=== PATIENT | male | born 1960 | race Caucasian/White ===

== ENCOUNTER 2021-09-27 04:27 | Emergency (ER) | payer SELFPAY ==
[2021-09-27 04:34] VITALS: BP 131/81; PULSE 82; TEMP 98.8; BMI 27.4
[2021-09-27] MEDS ORDERED: FAMOTIDINE 20 MG/50 ML IVPB 20 MG/50 ML MG IVPB ONE ×2 (04:45→05:27)
[2021-09-27] MEDS ORDERED: ONDANSETRON 4 MG/2 ML VIAL IVPUSH ONE (04:45)
[2021-09-27] MEDS ORDERED: SODIUM CHLORIDE 0.9% 500 ML INFUS.BAG IV ONE (04:45)
[2021-09-27 05:34] LABS: CHLORIDE 106 mmol/L (98-107); SODIUM 141 mmol/L (136-145)
[2021-09-27 05:37] LABS: ALBUMIN 3.7 g/dl (3.4-5.0); ANION GAP 8 MMOL/L (8-16); BASO % 0.8 % (0-2.0); BLOOD UREA NITROGEN 3.2 mg/dL (7-18); CO2 27 mmol/L (21-32); EOS % 1.2 % (0-4.5); GLUCOSE,RANDOM 158 mg/dL (74-106); HEMOGLOBIN 14.3 GM/dL (11.7-16.9); LIPASE 247 U/L (73-393); LYMPH % 10.6 % (8-40); MCH 34.3 pg (25.7-33.7); MCHC 34.9 g/dl (32.0-35.9); MEAN CELL VOLUME 98.1 fl (80-96); MEAN PLT VOLUME 7.6 fl (7.5-11.1); MONO % 8.3 % (3.8-10.2); NEUT % 79.1 % (42.8-82.8); PLATELET COUNT 248 10^3/uL (134-434); RBC 4.18 M/mm3 (4.00-5.60); RDW 12.7 % (11.9-15.9)
[2021-09-27 05:40] LABS: CREATININE 0.6 mg/dL (0.55-1.3); SGOT/AST 142 U/L (15-37); SGPT/ALT 83 U/L (13-61)
[2021-09-27 05:42] LABS: BILIRUBIN,TOTAL 1.1 mg/dL (0.2-1); TOT PROT 8.8 g/dl (6.4-8.2)
[2021-09-27 05:43] LABS: ALK PHOS 87 U/L (45-117)
[2021-09-27] MEDS ORDERED: ONDANSETRON 4 MG/2 ML VIAL ONE (05:44)
[2021-09-27] MEDS ORDERED: MAG HYDROX/AL HYDROX/SIMETH -MYLANTA- ORAL SUSPENSION PO ONE (06:16)
[2021-09-27] MEDS ORDERED: MAGNESIUM HYDROX 2400MG/30ML ORAL SUSPENSION 30 ML CUP ONE (06:19)
== END 2021-09-27 06:51 | disposition home or self-care (01) ==
LOC: JER 04:27
PROC: 3E033GC Introduction of Other Therapeutic Substance into Peripheral Vein, Percutaneous Approach (ICD-10-PCS; principal; 2021-09-27)
DX: R10.13 Epigastric pain (principal); R11.10 Vomiting, unspecified
CPT/HCPCS: 36415; 80053; 83690; 83735; 84484; 85025; 93005; 93010; 99284-25

== ENCOUNTER 2024-04-13 22:09 | Inpatient (IN) | payer SELFPAY ==
[2024-04-13 22:57] LABS: BASO % 1.5 % (0-2.0); EOS % 2.7 % (0-4.5); HEMATOCRIT 39.9 % (35.4-49); MCH 35.5 pg (25.7-33.7); MCHC 35.1 g/dl (32.0-35.9); MEAN PLT VOLUME 9.3 fl (7.5-11.1); MONO % 14.4 % (3.8-10.2); NEUT % 50.4 % (42.8-82.8); PLATELET COUNT 117 10^3/uL (134-434); RBC 3.95 M/mm3 (4.00-5.60); WHITE BLOOD COUNT 4.3 K/mm3 (4.0-10.0)
[2024-04-13 23:04] LABS: INR 1.54 (0.83-1.09); PROTHROMBIN TIME (PATIENT) 17.2 SEC (9.7-13.0)
[2024-04-13 23:06] LABS: ACTIVATED PTT 42.6 SECONDS (25.2-36.5)
[2024-04-13] MEDS: SODIUM CHLORIDE 1,000 ML IV SCH (23:08)
[2024-04-13 23:10] LABS: POTASSIUM 3.2 mmol/L (3.5-5.1)
[2024-04-13 23:11] LABS: CALCIUM 8.2 mg/dL (8.5-10.1)
[2024-04-13 23:12] LABS: ALBUMIN 3.2 g/dl (3.4-5.0)
[2024-04-13 23:14] LABS: BLOOD UREA NITROGEN 4.9 mg/dL (7-18)
[2024-04-13 23:16] LABS: CREATININE 0.6 mg/dL (0.55-1.3)
[2024-04-13 23:17] LABS: TOT PROT 8.7 g/dl (6.4-8.2)
[2024-04-13 23:19] LABS: BILIRUBIN,TOTAL 3.2 mg/dL (0.2-1)
[2024-04-13 23:41] LABS: MAGNESIUM 1.6 mg/dL (1.8-2.4)
[2024-04-14] MEDS ORDERED: POTASSIUM CHLORIDE ORAL LIQUID 20 MEQ/15 ML ONE (00:20)
[2024-04-14] MEDS ORDERED: MAGNESIUM SULFATE IN WATER 2 GM/50 ML IVPB IVPB ONE (00:20)
[2024-04-14] MEDS: MAGNESIUM SULF 50% (8.12 MEQ/2 ML-1 GM VIAL) IVPB ONE (00:24)
[2024-04-14] MEDS: POTASSIUM CHLORIDE ORAL LIQUID 20 MEQ/15 ML PO ONE (00:24)
[2024-04-14] MEDS ORDERED: chlordiazePOXIDE HCL 25 MG CAPSULE PO PRN (02:51)
[2024-04-14] MEDS: FOLIC ACID INJECTION - 1 MG, THIAMINE HCL 100 MG, MULTIVIT INJECTION ADULT 10 ML in SOD... IVPB ONE (06:13)
[2024-04-14 07:12] LABS: POTASSIUM 3.7 mmol/L (3.5-5.1)
[2024-04-14 07:15] LABS: ALBUMIN 2.7 g/dl (3.4-5.0)
[2024-04-14] MEDS: chlordiazePOXIDE HCL 10 MG CAPSULE PO STA (07:15)
[2024-04-14 07:18] LABS: CREATININE 0.6 mg/dL (0.55-1.3)
[2024-04-14 07:19] LABS: PHOSPHOROUS 3.2 mg/dL (2.5-4.9)
[2024-04-14 07:20] LABS: TOT PROT 7.4 g/dl (6.4-8.2)
[2024-04-14 07:25] LABS: HEMATOCRIT 35.6 % (35.4-49); HEMOGLOBIN 12.4 GM/dL (11.7-16.9); MCH 35.9 pg (25.7-33.7); MCHC 34.9 g/dl (32.0-35.9); MEAN CELL VOLUME 102.8 fl (80-96); MEAN PLT VOLUME 9.6 fl (7.5-11.1); PLATELET COUNT 95 10^3/uL (134-434); RBC 3.46 M/mm3 (4.00-5.60); RDW 15.1 % (11.9-15.9); WHITE BLOOD COUNT 3.9 K/mm3 (4.0-10.0)
[2024-04-14 08:31] LABS: PH,URINE 6.5 (5.0-8.0); URINE APPEARANCE CLEAR; URINE BILIRUBIN NEGATIVE (NEGATIVE); URINE COLOR DK YELLOW; URINE GLUCOSE (UA) NEGATIVE (NEGATIVE); URINE KETONE TRACE (NEGATIVE); URINE LEUK ESTERASE NEGATIVE (NEGATIVE); URINE NITRITE NEGATIVE (NEGATIVE); URINE PROTEIN NEGATIVE (NEGATIVE)
[2024-04-14 09:13] LABS: METHADONE, UR NEGATIVE (NEGATIVE); PHENCYCLIDINE,URINE NEGATIVE (NEGATIVE); URINE AMPHETAMINES NEGATIVE (NEGATIVE); URINE BENZODIAZEPINES NEGATIVE (NEGATIVE)
[2024-04-14 09:14] LABS: OPIATES, URI NEGATIVE (NEGATIVE); URINE BARBITURATES NEGATIVE (NEGATIVE)
[2024-04-14 09:20] LABS: COCAINE, UR NEGATIVE (NEGATIVE)
[2024-04-14] MEDS: PANTOPRAZOLE SODIUM 40 MG VIAL IVPUSH SCH (09:23)
[2024-04-14] MEDS: MULTIVITAMINS (DAILY MVI) TABLET (FP) PO SCH (09:23)
[2024-04-14] MEDS: FOLIC ACID 1 MG TABLET (FP) PO SCH (09:23)
[2024-04-14] MEDS: THIAMINE HCL 200 MG/2 ML VIAL IVPB SCH (09:24)
[2024-04-14] MEDS: LACTATED RINGERS SOLUTION 1,000 ML/1,000 ML INFUS.BAG IV ONE (09:28)
[2024-04-14] MEDS ORDERED: amLODIPine BESYLATE 10 MG TABLET (FP) PO SCH (10:00)
[2024-04-14] MEDS: LORazepam 1 MG TABLET PO SCH (11:26)
[2024-04-14] MEDS ORDERED: LORazepam 0.5 MG TABLET PO PRN (15:51)
[2024-04-14] MEDS: LORazepam 1 MG TABLET PO PRN (15:53)
[2024-04-14] MEDS: ATORVASTATIN CA 80 MG TABLET (FP) PO SCH (21:00)
[2024-04-15] MEDS ORDERED: DEXMEDETOMIDINE PREMIX 400 MCG/100 ML BAG IVPB ONE (04:36)
[2024-04-15] MEDS: PHENobarbital SODIUM 65 MG/1 ML VIAL IVPUSH ONE (05:12)
[2024-04-15] MEDS: DEXMEDETOMIDINE PREMIX 400 MCG/100 ML BAG IVPB SCH (05:14)
[2024-04-15] MEDS ORDERED: PHENobarbital SODIUM 65 MG/1 ML VIAL IVPUSH PRN (05:15)
[2024-04-15 06:45] LABS: BASO % 1.1 % (0-2.0); EOS % 0.5 % (0-4.5); HEMATOCRIT 38.3 % (35.4-49); LYMPH % 11.6 % (8-40); MCH 35.1 pg (25.7-33.7); MCHC 33.9 g/dl (32.0-35.9); MEAN CELL VOLUME 103.3 fl (80-96); MONO % 13.1 % (3.8-10.2); NEUT % 73.7 % (42.8-82.8); PLATELET COUNT 96 10^3/uL (134-434); RBC 3.71 M/mm3 (4.00-5.60); RDW 15.1 % (11.9-15.9)
[2024-04-15 06:49] LABS: INR 1.77 (0.83-1.09)
[2024-04-15 07:00] LABS: CHLORIDE 105 mmol/L (98-107); SODIUM 136 mmol/L (136-145)
[2024-04-15 07:03] LABS: CALCIUM 8.4 mg/dL (8.5-10.1); GLUCOSE,RANDOM 169 mg/dL (74-106)
[2024-04-15 07:04] LABS: ALBUMIN 2.8 g/dl (3.4-5.0); BLOOD UREA NITROGEN 8.4 mg/dL (7-18); CO2 21 mmol/L (21-32); MAGNESIUM 1.7 mg/dL (1.8-2.4)
[2024-04-15 07:07] LABS: CREATININE 0.9 mg/dL (0.55-1.3); PHOSPHOROUS 1.9 mg/dL (2.5-4.9); SGOT/AST 81 U/L (15-37); SGPT/ALT 27 U/L (13-61)
[2024-04-15 07:09] LABS: BILIRUBIN,TOTAL 4.8 mg/dL (0.2-1); TOT PROT 7.7 g/dl (6.4-8.2)
[2024-04-15 07:12] LABS: ALK PHOS 97 U/L (45-117)
[2024-04-15 07:24] LABS: ANION GAP 11 mmol/L (4-13); POTASSIUM 2.8 mmol/L (3.5-5.1)
[2024-04-15] MEDS: KCL 10 MEQ IVPB 10 MEQ/100 ML INFUS.BAG IVPB SCH (08:47)
[2024-04-15] MEDS: POTASSIUM PHOSPHATE 45 MM in SODIUM CHLORIDE 500 ML IVPB ONE (10:00)
[2024-04-15] MEDS: MAGNESIUM 2GM/50ML STERILE WATER IVPB IVPB ONE (10:01)
[2024-04-15 12:46] LABS: GAMMA GLUTAMYL TRANSPEPTIDASE 348 U/L (5-85)
[2024-04-15 12:49] LABS: BILIRUBIN,DIRECT 2.4 mg/dL (0.0-0.2)
[2024-04-15] MEDS ORDERED: KCL 10 MEQ IVPB 10 MEQ/100 ML INFUS.BAG IVPB SCH (13:45)
[2024-04-15] MEDS: POTASSIUM CHLORIDE ORAL LIQUID 20 MEQ/15 ML PO ONE (15:02)
[2024-04-15 23:36] LABS: ANISOCYTOSIS 0; MACROCYTOSIS 0; PLATELET ESTIMATE NORMAL
[2024-04-15] MEDS: THIAMINE HCL 200 MG/2 ML VIAL IVPB SCH (23:41)
[2024-04-16] MEDS ORDERED: LORazepam 1 MG TABLET PO SCH (05:00)
[2024-04-16 08:14] LABS: BASO % 1.1 % (0-2.0); EOS % 0.5 % (0-4.5); HEMATOCRIT 37.5 % (35.4-49); LYMPH % 14.2 % (8-40); MCH 35.4 pg (25.7-33.7); MCHC 34.6 g/dl (32.0-35.9); MEAN CELL VOLUME 102.4 fl (80-96); MEAN PLT VOLUME 10.1 fl (7.5-11.1); MONO % 13.2 % (3.8-10.2); PLATELET COUNT 97 10^3/uL (134-434); RBC 3.66 M/mm3 (4.00-5.60); RDW 15.4 % (11.9-15.9); WHITE BLOOD COUNT 5.7 K/mm3 (4.0-10.0)
[2024-04-16 08:37] LABS: POTASSIUM 3.4 mmol/L (3.5-5.1)
[2024-04-16 08:45] LABS: BLOOD UREA NITROGEN 9.9 mg/dL (7-18); CALCIUM 8.3 mg/dL (8.5-10.1)
[2024-04-16 08:46] LABS: ALBUMIN 2.7 g/dl (3.4-5.0); MAGNESIUM 1.9 mg/dL (1.8-2.4)
[2024-04-16 08:49] LABS: CREATININE 0.6 mg/dL (0.55-1.3); PHOSPHOROUS 2.2 mg/dL (2.5-4.9)
[2024-04-16 08:50] LABS: BILIRUBIN,TOTAL 4.8 mg/dL (0.2-1); TOT PROT 7.5 g/dl (6.4-8.2)
[2024-04-16] MEDS: LORazepam 2 MG/ML SDV VIAL IVPUSH ONE (09:44)
[2024-04-16] MEDS ORDERED: THIAMINE HCL 200 MG/2 ML VIAL IVPB SCH (10:00)
[2024-04-16] MEDS: FOLIC ACID 1 MG TABLET (FP) PO SCH (10:17)
[2024-04-16] MEDS: PANTOPRAZOLE SODIUM 40 MG VIAL IVPUSH SCH (10:17)
[2024-04-16] MEDS: MULTIVITAMINS (DAILY MVI) TABLET (FP) PO SCH (10:17)
[2024-04-16] MEDS: LOSARTAN POTASSIUM 25 MG TABLET PO SCH (13:19)
[2024-04-16] MEDS: POTASSIUM PHOSPHATE 15 MM in SODIUM CHLORIDE 250 ML IVPB ONE (16:34)
[2024-04-16] MEDS: PHYTONADIONE 10 MG/1 ML AMP IVPB ONE ×2 (18:39→18:49)
[2024-04-16] MEDS: LACTULOSE 20 GM/30 ML UDC (FOR ORAL USE ONLY) PO SCH (22:22)
[2024-04-17] MEDS ORDERED: LORazepam 0.5 MG TABLET PO PRN
[2024-04-17] MEDS ORDERED: LORazepam 0.5 MG TABLET PO SCH (05:00)
[2024-04-17 07:37] LABS: POTASSIUM 3.3 mmol/L (3.5-5.1)
[2024-04-17 07:39] LABS: ALBUMIN 2.6 g/dl (3.4-5.0); BLOOD UREA NITROGEN 7.7 mg/dL (7-18); CALCIUM 8.3 mg/dL (8.5-10.1); MAGNESIUM 1.6 mg/dL (1.8-2.4)
[2024-04-17 07:42] LABS: CREATININE 0.6 mg/dL (0.55-1.3)
[2024-04-17 07:44] LABS: TOT PROT 7.4 g/dl (6.4-8.2)
[2024-04-17 07:53] LABS: BASO % 1.4 % (0-2.0); EOS % 2.5 % (0-4.5); HEMATOCRIT 37.3 % (35.4-49); HEMOGLOBIN 13.1 GM/dL (11.7-16.9); MCH 35.8 pg (25.7-33.7); MEAN CELL VOLUME 102.2 fl (80-96); MEAN PLT VOLUME 9.6 fl (7.5-11.1); MONO % 16.8 % (3.8-10.2); NEUT % 61.3 % (42.8-82.8); PLATELET COUNT 97 10^3/uL (134-434); RBC 3.65 M/mm3 (4.00-5.60); RDW 14.9 % (11.9-15.9); WHITE BLOOD COUNT 4.9 K/mm3 (4.0-10.0)
[2024-04-17] MEDS: POTASSIUM CHLORIDE TABS 20 MEQ TABLET.ER (FP) PO SCH (10:02)
[2024-04-17] MEDS: MAGNESIUM 2GM/50ML STERILE WATER IVPB IVPB ONE (10:03)
[2024-04-17 11:08] LABS: INR 1.77 (0.83-1.09); PROTHROMBIN TIME (PATIENT) 19.7 SEC (9.7-13.0)
[2024-04-17 13:21] LABS: PHOSPHOROUS 3.9 mg/dL (2.5-4.9)
[2024-04-18] MEDS ORDERED: LORazepam 0.5 MG TABLET PO ONE (05:00)
[2024-04-18 07:28] LABS: INR 1.85 (0.83-1.09); PROTHROMBIN TIME (PATIENT) 20.5 SEC (9.7-13.0)
[2024-04-18 07:29] LABS: BASO % 1.4 % (0-2.0); EOS % 2.7 % (0-4.5); HEMATOCRIT 39.1 % (35.4-49); HEMOGLOBIN 13.3 GM/dL (11.7-16.9); LYMPH % 15.9 % (8-40); MCH 35.3 pg (25.7-33.7); MCHC 34.1 g/dl (32.0-35.9); MEAN CELL VOLUME 103.4 fl (80-96); MEAN PLT VOLUME 9.5 fl (7.5-11.1); PLATELET COUNT 115 10^3/uL (134-434); RBC 3.78 M/mm3 (4.00-5.60); RDW 14.6 % (11.9-15.9); WHITE BLOOD COUNT 5.9 K/mm3 (4.0-10.0)
[2024-04-18 07:46] LABS: POTASSIUM 3.5 mmol/L (3.5-5.1)
[2024-04-18 07:48] LABS: BLOOD UREA NITROGEN 8.4 mg/dL (7-18); CALCIUM 8.4 mg/dL (8.5-10.1)
[2024-04-18 07:49] LABS: ALBUMIN 2.8 g/dl (3.4-5.0)
[2024-04-18 07:51] LABS: PHOSPHOROUS 3.6 mg/dL (2.5-4.9)
[2024-04-18 07:52] LABS: CREATININE 0.6 mg/dL (0.55-1.3)
[2024-04-18 07:53] LABS: BILIRUBIN,TOTAL 4.9 mg/dL (0.2-1); TOT PROT 7.7 g/dl (6.4-8.2)
[2024-04-18 15:22] VITALS: BMI 27.4
[2024-04-18] MEDS: LACTULOSE 20 GM/30 ML UDC (FOR ORAL USE ONLY) PO SCH (21:32)
[2024-04-19 07:47] LABS: BASO % 0.8 % (0-2.0); EOS % 0.9 % (0-4.5); HEMATOCRIT 40.1 % (35.4-49); HEMOGLOBIN 13.7 GM/dL (11.7-16.9); LYMPH % 7.8 % (8-40); MCH 35.4 pg (25.7-33.7); MCHC 34.2 g/dl (32.0-35.9); MEAN CELL VOLUME 103.4 fl (80-96); MEAN PLT VOLUME 9.9 fl (7.5-11.1); MONO % 15.9 % (3.8-10.2); NEUT % 74.6 % (42.8-82.8); PLATELET COUNT 106 10^3/uL (134-434); RBC 3.88 M/mm3 (4.00-5.60); RDW 14.8 % (11.9-15.9); WHITE BLOOD COUNT 5.8 K/mm3 (4.0-10.0)
[2024-04-19 07:58] LABS: POTASSIUM 3.6 mmol/L (3.5-5.1)
[2024-04-19 08:00] LABS: INR 1.91 (0.83-1.09); PROTHROMBIN TIME (PATIENT) 21.2 SEC (9.7-13.0)
[2024-04-19 08:02] LABS: BLOOD UREA NITROGEN 6.3 mg/dL (7-18); CALCIUM 8.5 mg/dL (8.5-10.1)
[2024-04-19 08:03] LABS: ALBUMIN 2.8 g/dl (3.4-5.0)
[2024-04-19 08:05] LABS: CREATININE 0.8 mg/dL (0.55-1.3)
[2024-04-19 08:07] LABS: BILIRUBIN,TOTAL 5.7 mg/dL (0.2-1); TOT PROT 7.8 g/dl (6.4-8.2)
[2024-04-19] MEDS: PANTOPRAZOLE 40 MG TABLET PO SCH (09:29)
[2024-04-19] MEDS: CEFTRIAXONE 1 GM in DEXTROSE 5%-WATER - 50 ML IVPB SCH (09:29)
[2024-04-19] MEDS: PHYTONADIONE 10 MG/1 ML AMP IVPB ONE (11:52)
[2024-04-19 14:04] LABS: BASO % 0.4 % (0-2.0); EOS % 0.1 % (0-4.5); HEMATOCRIT 40.5 % (35.4-49); HEMOGLOBIN 13.8 GM/dL (11.7-16.9); LYMPH % 8.8 % (8-40); MCHC 34.1 g/dl (32.0-35.9); MEAN CELL VOLUME 102.8 fl (80-96); MEAN PLT VOLUME 9.1 fl (7.5-11.1); MONO % 15.9 % (3.8-10.2); NEUT % 74.8 % (42.8-82.8); PLATELET COUNT 102 10^3/uL (134-434); RBC 3.94 M/mm3 (4.00-5.60); RDW 14.8 % (11.9-15.9)
[2024-04-19 14:14] LABS: INR 2.23 (0.83-1.09); PROTHROMBIN TIME (PATIENT) 24.6 SEC (9.7-13.0)
[2024-04-19 14:21] LABS: POTASSIUM 3.2 mmol/L (3.5-5.1)
[2024-04-19 14:25] LABS: ALBUMIN 2.7 g/dl (3.4-5.0); BLOOD UREA NITROGEN 7.5 mg/dL (7-18); CALCIUM 8.5 mg/dL (8.5-10.1)
[2024-04-19 14:28] LABS: CREATININE 0.7 mg/dL (0.55-1.3)
[2024-04-19 14:30] LABS: BILIRUBIN,TOTAL 6.8 mg/dL (0.2-1); TOT PROT 7.6 g/dl (6.4-8.2)
[2024-04-19] MEDS ORDERED: SUGAMMADEX SODIUM 200 MG/2 ML VIAL ONE (15:13)
[2024-04-19] MEDS ORDERED: ACETAMINOPHEN INJECTION 100 ML IVPB ONE (17:37)
[2024-04-19] MEDS: ACETAMINOPHEN 1000 MG/100 ML BAG IVPB ONE ×2 (18:16→18:18)
[2024-04-19] MEDS: LACTATED RINGERS SOLUTION 1,000 ML/1,000 ML INFUS.BAG IV SCH (18:17)
[2024-04-19] MEDS: LACTULOSE 20 GM/30 ML UDC (FOR ORAL USE ONLY) PO SCH (21:08)
[2024-04-20 08:09] VITALS: RESP 18
[2024-04-20 08:32] LABS: BASO % 0.4 % (0-2.0); HEMATOCRIT 41.3 % (35.4-49); HEMOGLOBIN 13.8 GM/dL (11.7-16.9); LYMPH % 7.8 % (8-40); MCH 35.1 pg (25.7-33.7); MCHC 33.4 g/dl (32.0-35.9); MEAN CELL VOLUME 105.1 fl (80-96); MEAN PLT VOLUME 10.2 fl (7.5-11.1); MONO % 8.5 % (3.8-10.2); NEUT % 83.3 % (42.8-82.8); PLATELET COUNT 106 10^3/uL (134-434); RBC 3.92 M/mm3 (4.00-5.60); RDW 14.7 % (11.9-15.9); WHITE BLOOD COUNT 5.8 K/mm3 (4.0-10.0)
[2024-04-20 08:39] LABS: INR 2.41 (0.83-1.09)
[2024-04-20 08:57] LABS: POTASSIUM 3.9 mmol/L (3.5-5.1)
[2024-04-20 09:02] LABS: ALBUMIN 2.6 g/dl (3.4-5.0); BLOOD UREA NITROGEN 11.5 mg/dL (7-18); CALCIUM 8.4 mg/dL (8.5-10.1)
[2024-04-20 09:05] LABS: CREATININE 0.6 mg/dL (0.55-1.3)
[2024-04-20 09:06] LABS: TOT PROT 7.4 g/dl (6.4-8.2)
[2024-04-20 09:07] LABS: BILIRUBIN,TOTAL 6.4 mg/dL (0.2-1)
[2024-04-20] MEDS: FOLIC ACID 1 MG TABLET (FP) PO SCH (09:28)
[2024-04-20] MEDS: LOSARTAN POTASSIUM 25 MG TABLET PO SCH (09:28)
[2024-04-20] MEDS: MULTIVITAMINS (DAILY MVI) TABLET (FP) PO SCH (09:28)
[2024-04-20] MEDS: PANTOPRAZOLE 40 MG TABLET PO SCH (09:28)
[2024-04-20 09:29] LABS: ANISOCYTOSIS 1+; MACROCYTOSIS 1+
[2024-04-20] MEDS: CEFTRIAXONE 1 GM in DEXTROSE 5%-WATER - 50 ML IVPB SCH (09:29)
[2024-04-20] MEDS ORDERED: MULTIVITAMINS (DAILY MVI) TABLET (FP) PO SCH (10:00)
[2024-04-20] MEDS ORDERED: FOLIC ACID 1 MG TABLET (FP) PO SCH (10:00)
[2024-04-20] MEDS ORDERED: LOSARTAN POTASSIUM 25 MG TABLET PO SCH (10:00)
[2024-04-20 17:39] VITALS: BP 129/71; PULSE 84; TEMP 98.3
== END 2024-04-20 17:55 | disposition short-term general hospital (02) | DRG 44 ==
LOC: JER 22:09 → JERBED 23:25 → JICU 04-14 01:50 → J4W 04-15 16:13
PROVIDERS: ADMIT Internal Medicine Pulmonary Disease; ATTEND Internal Medicine
PROC: 0DJ08ZZ Inspection of Upper Intestinal Tract, Via Natural or Artificial Opening Endoscopic (ICD-10-PCS; principal; 2024-04-19 15:00)
DX: I61.0 Nontraumatic intracerebral hemorrhage in hemisphere, subcortical (principal); I10 Essential (primary) hypertension; K76.0 Fatty (change of) liver, not elsewhere classified; F10.230 Alcohol dependence with withdrawal, uncomplicated; K70.10 Alcoholic hepatitis without ascites; R18.8 Other ascites; E87.6 Hypokalemia; E83.39 Other disorders of phosphorus metabolism; D69.6 Thrombocytopenia, unspecified; M25.551 Pain in right hip; K70.30 Alcoholic cirrhosis of liver without ascites; K76.82 Hepatic encephalopathy; E87.8 Other disorders of electrolyte and fluid balance, not elsewhere classified; E83.42 Hypomagnesemia; E78.5 Hyperlipidemia, unspecified; E80.6 Other disorders of bilirubin metabolism; K82.1 Hydrops of gallbladder; K83.09 Other cholangitis; K80.50 Calculus of bile duct without cholangitis or cholecystitis without obstruction; Q39.4 Esophageal web; D68.9 Coagulation defect, unspecified; K83.8 Other specified diseases of biliary tract
CPT/HCPCS: 0241U-QW; 36415; 36430; 70450-TC; 70544-TC; 72170-TC-FY; 73502-TC-RT-FY; 74181-TC; 76000-TC-FY; 76705-TC; 80048; 80053; 80061; 80076; 80307; 81003; 82105; 82140; 82248; 82550; 82553; 82607; 82962; 82977; 83010; 83036; 83615; 83690; 83735; 84100; 84484; 85025; 85027; 85610; 85730; 86704; 86709; 86803; 86850; 86900; 86901; 87340; 87517; 87522; 87635; 93005; 93010; 94760; 97116-GP; 97162-GP; 99291; J0131; P9017